=== PATIENT | male | born 1965 | race Caucasian/White ===

== ENCOUNTER 2018-08-01 05:28 | Day surgery (SDC) | payer BC ==
[~2018-08-01] VITALS: Ht 182.9 cm; Wt 77.6 kg
[2018-08-01] VITALS (13 sets, daily range): BP systolic 103–165; BP diastolic 54–81; PULSE 47–58; RESP 12–45; Ht 182.9 cm; Wt 77.6 kg
[2018-08-01] MEDS ORDERED: ROPIVACAINE 0.5 % 30 ML VIAL ONE (06:48)
[2018-08-01] MEDS ORDERED: morphine SULFATE/PF (10 MG/10 ML) INJ ONE (06:49)
[2018-08-01] MEDS ORDERED: NEOMYC/POLYMYX/BACIT 30 GM OINT ONE (06:49)
[2018-08-01] MEDS ORDERED: LIDOCAINE 1% (MPF) 30 ML INJ ONE (06:50)
[2018-08-01] MEDS ORDERED: ROCURONIUM 50 MG INJ ONE (07:00)
--- NOTE | 2018-08-01 07:25 | PREAC ---
Date/Time of Note Date/Time of Note DATE: 08/01/18 TIME: 07:23 Anesthesia Eval and Record Evaluation Time Pre-Procedure Interview DATE: 08/01/18 TIME: 07:23 Age 52 Sex male NPO: 8 hrs Preoperative diagnosis Lt Knee meniscus tear Planned procedure Lt Knee Arthroscopy, menicectomy Past Medical History Past Medical History: None Surgery & Anesthesia Issues No known issue Meds Anticoagulation: No Beta Janelle within 24 hr: No Reason Beta Janelle not given: Pt. not on B-Janelle No Active Prescriptions or Reported Meds Meds reviewed: Yes Allergies Coded Allergies: No Known Allergy (Unverified , 08/01/18) Allergies Reviewed: Yes Labs/Studies Labs Reviewed: Reviewed by anesthesiologist test: N/A Pre-procedure Exam Last vitals Vital Signs Date Temp Pulse Resp B/P (MAP) Pulse Ox O2 O2 Flow FiO2 Time Delivery Rate 08/01/18 97.5 51 18 136/80 99 Room Air 06:16 (98) Airway: Adequate mouth opening, Adequate thyromental dist Mallampati: Mallampati II Teeth: Normal Lung: Normal Heart: Normal ASA Physical Status ASA physical status: 2 Emergency: None Planned Anesthetic General/MAC: LMA Planned Pain Management Parenteral pain med, Local by surgeon Pre-operative Attestations Prior to commencing anesthesia and surgery, the patient was re-evaluated, there was verification of: *The patient's identity *The results of appropriate recent lab work and preoperative vital signs *The above evaluation not changing prior to induction *Anesthetic plan, risk benefits, alternative and complications discussed with patient/family; questions answered; patient/family understands, accepts and wishes to proceed. JUNITO SENA MD Aug 01, 2018 07:25
[2018-08-01] MEDS ORDERED: MIDAZOLAM 1 MG/ML 2 ML INJ ONE (07:36)
--- NOTE | 2018-08-01 07:55 | HPN ---
Date/Time of Note Date/Time of Note DATE: 08/01/18 TIME: 07:55 Interval H&P Admission Note Pt. seen H&P reviewed: No system changes KAROLINE CHATTERJEE MD Aug 01, 2018 07:55
[2018-08-01] MEDS ORDERED: PROPOFOL 20 ML ONE (08:53)
[2018-08-01] MEDS ORDERED: LIDOCAINE 2% (SDV) 5 ML INJ ONE (08:53)
[2018-08-01] MEDS ORDERED: CEFAZOLIN 1 GM INJ ONE (08:53)
[2018-08-01] MEDS ORDERED: ONDANSETRON 4 MG INJ ONE ×2 (08:54→09:34)
--- NOTE | 2018-08-01 09:13 | PAC ---
Date/Time of Note Date/Time of Note DATE: 08/01/18 TIME: 09:13 Post-Anesthesia Notes Post-Anesthesia Note Last documented vital signs Vital Signs Date Temp Pulse Resp B/P (MAP) Pulse Ox O2 O2 Flow FiO2 Time Delivery Rate 08/01/18 98.0 09:03 08/01/18 51 18 136/80 99 Room Air 06:16 (98) Activity: WNL Respiratory function: WNL Cardiovascular function: WNL Mental status: Baseline Pain reasonably controlled: Yes Hydration appropriate: Yes Nausea/Vomiting absent: Yes Comments BP:137/67, pulse:56, spo2:100%, T:98,2 JUNITO SENA MD Aug 01, 2018 09:13
[2018-08-01] MEDS ORDERED: MEPERIDINE 25 MG INJ ONE (09:22)
[2018-08-01] MEDS ORDERED: DIPHENHYDRAMINE 50 MG INJ IV PRN (09:30)
[2018-08-01] MEDS ORDERED: METOCLOPRAMIDE 10 MG INJ IV PRN (09:30)
[2018-08-01] MEDS ORDERED: morphine 2 MG INJ IV PRN (09:30)
[2018-08-01] MEDS ORDERED: FENTAnyl 50 MCG/ML VIAL IV PRN (09:30)
[2018-08-01] MEDS ORDERED: ONDANSETRON 4 MG INJ IV PRN (09:30)
[2018-08-01] MEDS ORDERED: HYDROmorphONE 1 MG/5 ML IV SYRINGE IV PRN (09:30)
[2018-08-01] MEDS ORDERED: MEPERIDINE 25 MG INJ IV PRN (09:30)
[2018-08-01] MEDS ORDERED: HYDROmorphONE 1 MG/5 ML IV SYRINGE IV ONE (09:34)
[2018-08-01] MEDS: HYDROmorphONE 1 MG/5 ML IV SYRINGE IV PRN ×2 (09:36→09:41)
--- NOTE | 2018-08-01 09:48 | OPR ---
Date/Time of Note Date/Time of Note DATE: 08/01/18 TIME: 09:29 Operative Report Procedure Date: Aug 01, 2018 Preoperative Diagnosis Left knee medial meniscus tear Postoperative Diagnosis Left knee medial meniscus tear Operation/Procedure Performed Left knee arthroscopy with medial meniscal repair, chondroplasty Left knee application of PRP Surgeon Karoline Chatterjee MD Director Of Cardiac Rehabilitation none Anesthesia Type: general, other Anesthesiologist: JUNITO SENA MD Tourniquet Time: 27 min at 250 mmHg Estimated Blood Loss: minimal Transfusion none Specimen none Grafts/Implants Arthrex meniscal repair device Arthrex Alli PRP (6%) Complications none Pt Condition Post Procedure: stable Disposition: PACU Indications INDICATIONS: Patient is a 52-year-old male with ongoing Left knee pain. The patient has complained of having catching, clicking and locking symptoms over the medial aspect of the knee with no relief with physical therapy or anti- inflammatory. Patient has decided to proceed with surgery. RISK NOTE: Patient was explained the risks and benefits of the surgery in the patients [place] language, including not limited to infection, bleeding, loss of limb, loss of life, need for future surgery, risk of anesthesia, risk of injury to the blood vessels and nerves, ligaments or tendons, and risk of deep vein thrombosis. Patient understood these risks and wished to proceed with the surgery. Procedure Description The correct operative site was noted and marked in the preoperative holding area. The patient was then brought back into the operative theater, placed supine on the operative table. Left knee was examined under anesthesia. Range of motion was 0-120. There is no varus or valgus or anterior or posterior instability. There is crepitus noticed at the patellofemoral joint. Tourniquet was then placed on the operative extremity thigh non-sterilely. Patient was then given preoperative antibiotics and then prepped and draped in normal sterile fashion. A timeout was taken and all parties in the room agreed it was the correct patient, correct extremity and correct procedure. Standard anterior lateral portal was created and the knee joint was entered with a blunt tipped trocar, followed by 30 arthroscope. Inflow was achieved with a pump and the pressure maintained at approximately 50 mmHg. A routine arthroscopic surgery was performed. Suprapatella pouch was unremarkable. 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 There were no loose bodies seen. There is an inflamed hypertrophic plica noted in the anterior and [place] perior medial aspect of the knee. The popliteus hiatus was entered and was normal. Lateral compartment was entered and no chondromalacia was seen on the lateral tibial plateau and femoral condyle. Scope was then brought into the intercondylar notch and an anteromedial portal was made. Shaver was brought into the knee and small amount of fat pad and scar tissue was initially gently debrided. The anterior cruciate ligament was intact and probed. The knee was brought into a valgus position and the medial compartment was entered. The articular surface of the medial femoral condyle and medial tibial plateau revealed grade 1 chondromalacia. There was a medial meniscus tear in the outside zone of the mid body junction of the anterior horn. Tear was kaitlin rided and then rasped the synovium and then repaired using Arthrex meniscal repair device. The motorized shaver and basket biters were used to smooth the remaining meniscal rim, with care to maintain the peripheral meniscal rim. A probe was introduced and this was carefully probed and was found to be stable. Chondroplasty was then carried out along the weightbearing aspect of the medial femoral condyle, medial tibial plateau, taking care to remove only loose articular cartilage debris and preserve functional articular cartilage. The lateral compartment was reentered and the loose chondral debris was debrided with motorized shaver. Attention was then directed back to the patella femoral joint and a chondroplasty was carried out along the weightbearing aspect of the trochlea and undersurface of the patella to again remove loose debris and maintain functional active articular cartilage. The knee was then irrigated with additional 2 L of lactated Ringers solution. Excess fluid was then drained. Range of motion was then attempted showing 0- 125 degrees of motion The portal sites were closed with 4-0 Monocryl and Steri-Strips and dressed with Xeroform and triple antibiotic ointment. The knee was then injected with 5 cc of platelet rich plasma. A platelet poor plasma soaked sterile dressing was then applied, followed by a compressive bulky soft bandage and an DIEGO Wrap. A locked knee brace was then placed on the knee At the completion of the surgery patient had palpable pulses, soft arms and brisk cap refill. The patient tolerated the procedure well and was taken to the PACU without any complications. All sponge and needle counts were correct. Patient will begin pain medicine and 48 hours of antibiotics as well as aspirin 81 mg for the duration of 4 weeks postoperatively Patient will be nonweightbearing for the next 2 weeks and begin toe-touch weightbearing at week 2 with range of motion limited to 0-90 when sitting for the first 4 weeks per KAROLINE CHATTERJEE MD Aug 01, 2018 09:42
== END 2018-08-01 10:46 | disposition home or self-care (01) ==
LOC: SDS 05:28
PROVIDERS: ATTEND Orthopaedic Surgery
DX: S83.242A Other tear of medial meniscus, current injury, left knee, initial encounter (principal); M25.562 Pain in left knee; X58.XXXA Exposure to other specified factors, initial encounter; Y93.89 Activity, other specified; Y92.89 Other specified places as the place of occurrence of the external cause; Y99.8 Other external cause status
CPT/HCPCS: 29881; J0690; J1170; J2175; J2250; J2405; J3010; Z7610; J2274; J2795